=== PATIENT | female | born 1955 | race Hispanic/Latino ===

== ENCOUNTER 2018-08-08 18:06 | Emergency (ER) | payer MEDICARE, OTHER ==
[2018-08-08] MEDS ORDERED: HYDROCODONE/ACETAMINOPHEN 5/325 MG TAB ONE (19:40)
[2018-08-08] MEDS ORDERED: ONDANSETRON ODT 4 MG TAB ONE (19:41)
== END 2018-08-08 21:25 | disposition home or self-care (01) ==
LOC: EDH 18:06
DX: S22.41XA Multiple fractures of ribs, right side, initial encounter for closed fracture (principal); Z87.891 Personal history of nicotine dependence; V69.88XA Occupant (driver) (passenger) of heavy transport vehicle injured in other specified transport accidents, initial encounter; Y93.89 Activity, other specified; Y92.89 Other specified places as the place of occurrence of the external cause; Y99.8 Other external cause status
CPT/HCPCS: 71100; 71250; 93005